=== PATIENT | female | born 1990 | race African-American/Black ===

== ENCOUNTER 2016-06-06 09:08 | Emergency (ER) | payer OTHER ==
[2016-06-06 09:17] VITALS: BP 135/82; BMI 32.7
--- NOTE | 2016-06-06 09:38 | DR.GENAD ---
HPI - PCP Primary Care Physician: nfd - Complaint/Symptoms Chief Complaint Doctors Comments: Patient admits to chest pain with deep inspiration for the past two days. She gives no history of trauma of cardiopulmonary disease. She denies fever or cough. She denies frequency or dysuria. Chief Complaint:: patient stated that for the past two days when she takes a deep breath she hurts in her rib area. Self Treatment fo Chief Complaint: none - Source History Provided: Patient - Mode of Arrival Mode of Arrival: Ambulatory - Timing Onset of Chief Complaint: 06/04/16 PMH - PMH Past Medical History: Yes Past Medical History: Hypertension, Kidney Stones Past Surgical History: No - Family History History of Family Medical Conditions: Yes Family Medical History: Diabetes Mellitus, [place], Hypertension - Social History Does patient currently use any type of tobacco product: Yes Have you used tobacco products in the last 12 months: Yes Type of Tobacco Use: Cigarettes How many years tobacco product used: 14 Does any household member use tobacco: No Alcohol Use: None Do you use any recreational Drugs:: No Lives With: Family Lives Where: Home - infectious screening In the last 2 months have you had wt loss of >10#?: NO Have you had fever, night sweats or hemotysis?: No Have you traveled outside the country in the last 6 months?: No Isolation: Standard ROS - Review of Systems Constitutional: No Symptoms Reported Eyes: No Symptoms Reported ENTM: No Symptoms Reported Respiratoy: No Symptoms Reported. negative: Dry Cough, Short of Breath, Wheezing Cardiovascular: No Symptoms Reported Gastrointestinal/Abdominal: No Symptoms Reported Genitourinary: No Symptoms Reported Neurological: No Symptoms Reported Musculoskeletal: Rib(s) (right anterior lower ribs, admits to pain with inspiration), Other (right inferior pain with inspiration) Integumentary: No Symptoms Reported Hematologic/Lymphatic: No Symptoms Reported Endocrine: No Symptoms Reported Psychiatric: No Symptoms Reported All Other Systems: Reviewed and Negative PE - Vital Signs Vitals: Temperature 98.5 F Pulse Rate 78 Respiratory Rate 16 Blood Pressure [Left Arm] 116/78 Blood Pressure 135/82 O2 Sat by Pulse Oximetry 100 - General Limitations: No Limitations General Appearance: Alert, In No Apparent Distress - Head Head Exam: Normal Inspection, Atraumatic - ENT ENT Exam: Normal Exam External Ear Exam: Normal External Inspection TM/Canal Exam: Bilateral Normal Nose Exam: Normal Nose Exam Mouth Exam: Normal Inspection Throat Exam: Normal Inspection - Neck Neck Exam: Normal Inspection - Chest Chest Inspection: Normal Inspection - Respiratory Respiratory Exam: Normal Lung Sounds Bilat Respiratory Exam: Bilateral Clear to Auscultation - Cardiovascular Cardiovascular Exam: Regular Rate - Abdominal Exam Abdominal Exam: Normal Inspection Abdominal Tenderness: negative: RUQ, RLQ, LUQ, LLQ, Epigastrium, Suprapubic, Diffuse, Mild, Moderate, Severe, Other - Extremities Extremities Exam: Normal Inspection, Full ROM - Back Back Exam: Normal Inspection - Neurologic Neurological Exam: Alert, Oriented X3, CN II-XII Intact - Psychiatric Psychiatric Exam: Normal Affect - Skin Skin Exam: Warm, Dry, Intact Course - Reevaluation 1st: Unchanged ROR - XRAY XRAY Interpreted by: Radiologist (Chest: No acue cardiopulmonary disease) - Diagnosis Discharge Problem: Pleuritic pain - Discharge Plan Condition: Stable - Follow ups/Referrals Follow ups/Referrals: NFD,None [Primary Care Provider] - 3 days - Instructions
--- NOTE | 2016-06-06 10:09 | RAD ---
HISTORY: Chest pain on inspiration Study: Single-view chest Comparison: April 25, 2016 Findings: The trachea is midline. The cardiac silhouette is unremarkable. The lungs are clear without focal infiltrate or effusion. The bony thorax is unremarkable. IMPRESSION: 1. No acute cardiopulmonary disease. Reported By:
== END 2016-06-06 10:17 | disposition home or self-care (01) ==
LOC: ER 09:20
DX: R07.1 Chest pain on breathing (principal)
CPT/HCPCS: 71010; 99281; 99282

== ENCOUNTER 2016-08-24 11:45 | Emergency (ER) | payer SELFPAY ==
[2016-08-24 11:49] VITALS: BP 129/78; BMI 32.8
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
--- NOTE | 2016-08-24 16:48 | RAD ---
HISTORY: Pain Study: Right hand series Comparison: None Findings: No acute cortical disruption or dislocation is identified. The soft tissues appear unremarkable. T he carpal bones appear aligned without evidence for fracture. IMPRESSION: 1. Negative exam. Reported By:
== END 2016-08-24 14:01 | disposition home or self-care (01) ==
LOC: ER 11:56
PROC: 2W38X1Z Immobilization of Right Upper Extremity using Splint (ICD-10-PCS; principal; 2016-08-24)
DX: S60.222A Contusion of left hand, initial encounter (principal); S43.402A Unspecified sprain of left shoulder joint, initial encounter; Y04.0XXA Assault by unarmed brawl or fight, initial encounter; Y92.9 Unspecified place or not applicable
CPT/HCPCS: 73030; 73130; 99282; 99283

== ENCOUNTER 2017-01-04 20:17 | Emergency (ER) | payer SELFPAY ==
[2017-01-04 20:30] VITALS: BMI 32.8
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
--- NOTE | 2017-01-04 22:51 | RAD ---
HISTORY: Left shoulder pain. Study: Three-view left shoulder. Comparison: 08/24/2016. Findings: The appearance of the clavicle and AC joint are unremarkable. The glenohumeral articulation is edis l in its appearance. No acute cortical disruption or dislocation can be identified. The visualized portions of the scapula are unremarkable. In addition, the visualized portions of the left hemithora x appear normal. IMPRESSION: Negative exam of the left shoulder. Reported By:
[2017-01-04] MEDS ORDERED: GENTAMICIN SULF (OPHTH) AFFEYE ONE (23:25)
[2017-01-04] MEDS ORDERED: MOTRIN TAB 600 MG PO ONE ×2 (23:25→23:43)
[2017-01-04] MEDS ORDERED: ULTRAM PO ONE (23:26)
[2017-01-04] MEDS ORDERED: GENTAMICIN SULF (OPHTH) ONE (23:42)
[2017-01-04] MEDS ORDERED: ULTRAM ONE (23:43)
[2017-01-04 23:58] VITALS: BP 136/86
== END 2017-01-04 23:58 | disposition home or self-care (01) ==
LOC: ER 20:17
DX: H00.011 Hordeolum externum right upper eyelid (principal); H10.33 Unspecified acute conjunctivitis, bilateral; S43.402A Unspecified sprain of left shoulder joint, initial encounter; Y33.XXXA Other specified events, undetermined intent, initial encounter; Y92.9 Unspecified place or not applicable
CPT/HCPCS: 73030; 99282

== ENCOUNTER 2017-02-18 08:50 | Emergency (ER) | payer SELFPAY ==
[2017-02-18 09:12] VITALS: BP 138/70; BMI 36.0
--- NOTE | 2017-02-18 10:49 | DR.TOOTHHP ---
HPI - Time Seen Time seen: 10:35 - Primary Care Physician Primary Care Physician: MARVA VALERO - HPI Comment HPI Comment: Upper tooth ache and sore throat since yesterday. She denies fever. - Complaints Chief Complaint:: PT C/O TOOTHACHE AND STREP THROAT. - Reviewed Nurses Notes Reviewed: Yes - Source History Provided: Patient - Mode of Arrival Mode of Arrival: Ambulatory - Timing Onset of Chief Complaint: 02/16/17 - Severity Pain Severity: Mild - Location Location:: Upper, Teeth - Context Onset:: Previous Caries History Of: None - Modifying Factors Worsens:: Nothing Improves:: Analgesics not used - Associated Signs and Symptoms Associated signs and symptoms: Sore Throat PMH - PMH Past Medical History: No Past Medical History: Hypertension, Kidney Stones Past Surgical History: No - Family History History of Family Medical Conditions: No Family Medical History: Diabetes Mellitus, [place], Hypertension - Social History Does patient currently use any type of tobacco product: Yes Have you used tobacco products in the last 12 months: Yes Type of Tobacco Use: Cigarettes How many years tobacco product used: 13 Does any household member use tobacco: No Alcohol Use: None Do you use any recreational Drugs:: No Lives With: Family Lives Where: Home - infectious screening In the last 2 months have you had wt loss of >10#?: NO Have you had fever, night sweats or hemotysis?: No Have you traveled outside the country in the last 6 months?: No Isolation: Standard ROS - Review of Systems Constitutional: No Symptoms Reported Eyes: No Symptoms Reported ENTM: Throat Pain (and tooth ache also) Respiratoy: No Symptoms Reported Cardiovascular: No Symptoms Reported Gastrointestinal/Abdominal: No Symptoms Reported Genitourinary: No Symptoms Reported Neurological: No Symptoms Reported Musculoskeletal: No Symptoms Reported Integumentary: No Symptoms Reported Hematologic/Lymphatic: No Symptoms Reported Endocrine: No Symptoms Reported Psychiatric: No Symptoms Reported All Other Systems: Reviewed and Negative PE - Vital Signs Vitals: Temperature 97.8 F Pulse Rate 92 Respiratory Rate 20 Blood Pressure [Left Arm] 136/86 Blood Pressure 138/70 O2 Sat by Pulse Oximetry 98 - General Limitations: No Limitations General Appearance: Alert, In No Apparent Distress - Head Head Exam: Normal Inspection - Eyes Eye exam: Normal Appearance - ENT ENT Exam: Normal External Ear Exam, Mucous Membranes Moist, TM's Normal Bilaterally External Ear Exam: Normal External Inspection TM/Canal Exam: Bilateral Normal Nose Exam: Normal Nose Exam Mouth Exam: Other (gingivitis of upper anterior gum) Teeth Exam: Fractured Tooth # (right front tooth on maxilla ), Gingival Swelling (anterior maxilla) Throat Exam: Normal Inspection - Neck Neck Exam: Normal Inspection, Full ROM, Trachea Midline - Chest Chest Inspection: Normal Inspection - Respiratory Respiratory Exam: Normal Lung Sounds Bilat - Cardiovascular Cardiovascular Exam: Regular Rate, Normal Rhythm - Abdominal Exam Abdominal Exam: Normal Inspection, Normal Bowel Sounds, Soft - Extremities Extremities Exam: Normal Inspection - Back Back Exam: Normal Inspection - Neurologic Neurological Exam: Alert, Oriented X3, CN II-XII Intact - Psychiatric Psychiatric Exam: Normal Affect, Normal Mood - Skin Skin Exam: Warm, Dry, Intact, Normal Color Course - Education/Counseling Education/Counseling: Patient, Family, Counseling Educated On: Treatment, Diagnosis, Prognosis, Needs for Follow Up - Diagnosis Discharge Problem: Tooth ache, Gingivitis - Discharge Plan Condition: Stable - Follow ups/Referrals Follow ups/Referrals: NFD,None [Primary Care Provider] - 3 days - Instructions
== END 2017-02-18 11:07 | disposition home or self-care (01) ==
LOC: ER 09:17
DX: K08.89 Other specified disorders of teeth and supporting structures (principal); K05.10 Chronic gingivitis, plaque induced
CPT/HCPCS: 99281; 99282

== ENCOUNTER 2017-03-23 16:09 | Emergency (ER) | payer SELFPAY ==
[2017-03-23 16:39] VITALS: BP 131/86; BMI 36.0
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
[2017-03-23] MEDS ORDERED: NS 1000 ML 1,000 ML ONE (16:54)
[2017-03-23] MEDS ORDERED: ZOFRAN INJ 4 MG VIAL ONE (16:55)
[2017-03-23] MEDS ORDERED: ZOFRAN INJ 4 MG VIAL IVP ONE (17:07)
[2017-03-23] MEDS ORDERED: NS 1000 ML 1,000 ML IV ONE (17:07)
[2017-03-23 17:12] LABS: BASOPHILS % (AUTO) 0.5 % (0.2-1.0); EOSINOPHILS % (AUTO) 0.5 % (0.9-2.9); HEMATOCRIT 36.6 % (36.0-47.0); HEMOGLOBIN 12.1 g/dL (12.0-16.0); LYMPHOCYTES # (AUTO) 1.1 X10^3/uL (1.3-2.9); LYMPHOCYTES % (AUTO) 17.2 % (21.0-51.0); MEAN CORPUSCULAR HEMOGLOBIN 29.4 pg (27.0-34.0); MEAN CORPUSCULAR HGB CONC 33.2 g/dL (33.0-35.0); MEAN CORPUSCULAR VOLUME 88.5 fL (80.0-100.0); MEAN PLATELET VOLUME 9.7 fL (7.4-11.0); MONOCYTES # (AUTO) 0.3 x10^3/uL (0.3-0.8); MONOCYTES % (AUTO) 3.9 % (0.0-13.0); NEUTROPHILS # (AUTO) 5.1 x10^3/uL (2.2-4.8); NEUTROPHILS % (AUTO) 77.9 % (42.0-75.0); PLATELET COUNT 201 X10^3/uL (150.0-450.0); RED BLOOD COUNT 4.13 X10^6/uL (3.5-5.4); RED CELL DISTRIBUTION WIDTH 14.5 % (11.6-16.5); WHITE BLOOD COUNT 6.6 X10^3/uL (3.6-10.0)
[2017-03-23 17:50] LABS: ALANINE AMINOTRANSFERASE 97 Units/L (12-78); ALKALINE PHOSPHATASE 114 Units/L (46-116); AMYLASE 58 Units/L (25-115); ASPARTATE AMINO TRANSFERASE 45 Units/L (15-37); BLOOD UREA NITROGEN 7 mg/dL (7-18); CALCIUM 8.6 mg/dL (8.5-10.1); CARBON DIOXIDE 26.6 mmol/L (21-32); CHLORIDE 106 mmol/L (98-107); COR CA(FOR HYPOALB) 9.4 mg/dL (8.5-10.1); COR NA(FOR HYPERGLY) 141 mmol/L (136-145); CREATININE 0.95 mg/dL (0.55-1.02); LIPASE 120 Units/L (73-393); SODIUM 140 mmol/L (136-145); TOTAL PROTEIN 7.3 g/dL (6.4-8.2); eGFR BLACK RACES > 60 (>60); eGFR NON BLACK RACES > 60 (>60)
[2017-03-23] MEDS ORDERED: LOMOTIL PO ONE (17:54)
[2017-03-23] MEDS ORDERED: BENTYL I.M. INJ 10 MG IM ONE ×2 (17:54→18:06)
--- NOTE | 2017-03-23 17:58 | RAD ---
Acute abdominal series Indication: Nausea and vomiting Comparison: None available Findings: The trachea is midline. The cardiac silhouette is unremarkable. The lungs are clear without focal i nfiltrate or effusion. The bony thorax is unremarkable. Flat and upright evaluation of the abdomen demonstrates a mildly thickened loops of small bowel with gaseous distention . The colon has abnormal bowel gas pattern.. No pathological soft tissue mass or calcification can be observed. The bony structures are grossly intact. IMPRESSION: 1. No acute cardiopulmonary disease. 2. Mildly thickened loops of small bowel with gaseous distention likely represents an enteritis as t here is no colonic decompression or significant gaseous dilatation of the small bowel to suggest obst ruction. Consider radiographic follow-up. Reported By:
[2017-03-23] MEDS ORDERED: LOMOTIL ONE (18:06)
== END 2017-03-23 18:37 | disposition home or self-care (01) ==
LOC: ER 16:32
DX: K52.89 Other specified noninfective gastroenteritis and colitis (principal); B96.81 Helicobacter pylori [H. pylori] as the cause of diseases classified elsewhere
CPT/HCPCS: 36415; 74022; 80053; 82150; 83690; 85025; 86677; 90472; 96365; 96372; 96374; 99282; 99283; A4222; J0500; J2405

== ENCOUNTER 2017-05-25 19:42 | Emergency (ER) | payer OTHER ==
[2017-05-25 19:53] VITALS: BP 139/82; BMI 29.7
--- NOTE | 2017-05-25 19:55 | DR.GENAD ---
HPI - PCP Primary Care Physician: LEONARDO - HPI Comment HPI Comment: HISTORY BELOW. - Complaint/Symptoms Chief Complaint Doctors Comments: PATIENT FELL AND INJURED MOUTH, LIPS AND TOOTH. SHE COULD NOT CATCH HERSELF. SHE SAID IT COULD BE BECAUSE OF HER ILLNESS WITH NACOLEPSY. SHE PASS OUT. COMPLAINIG OF HEADACHE. LEFT KNEE SWOLLEN AND PAINFUL. Chief Complaint:: PT STATES" I FELT MY SELF GOING OUT I'M NOT SURE IF IS WAS MY NACOLEPSY I JUST COULDN'T CATCH MYSELF' pt has bustedlip lip with tooth displaced abrasion to outer upper lip and gums have abrasion and swelling - Nurses notes reviewed Nurses Notes Review: Yes - Source History Provided: Patient - Mode of Arrival Mode of Arrival: EMS - Timing Onset of Chief Complaint: 05/25/17 Came on: Suddenly - Duration Duration: Constant Duration: Hours - Severity Severity: Moderate PMH - PMH Past Medical History: Yes Past Medical History: Hypertension, Kidney Stones Past Medical History Comment: narcolepsy Past Surgical History: No - Family History History of Family Medical Conditions: Yes Family Medical History: Diabetes Mellitus, PA, Hypertension - Social History Type of Tobacco Use: Cigarettes Does any household member use tobacco: Yes Alcohol Use: None Do you use any recreational Drugs:: No Lives With: Family Lives Where: Home - infectious screening In the last 2 months have you had wt loss of >10#?: NO Have you had fever, night sweats or hemotysis?: No Have you traveled outside the country in the last 6 months?: No Isolation: Standard ROS - Review of Systems Constitutional: No Symptoms Reported. negative: Chills, Fever, Weakness, Fatigue Eyes: No Symptoms Reported. negative: Eye Pain, Blurred Vision, Discharge, Photophobia, Diplopia ENTM: Mouth Pain, Mouth Swelling. negative: Ear Discharge, Nose Discharge, Nose Congestion, Loose Teeth (TOOTH INJURY.) Respiratoy: No Symptoms Reported. negative: Productive Cough, Non-Productive Cough, Short of Breath, Wheezing, Hemoptysis Cardiovascular: No Symptoms Reported. negative: Chest Pain Gastrointestinal/Abdominal: No Symptoms Reported. negative: Abdominal Pain, Diarrhea, Nausea, Vomiting Genitourinary: No Symptoms Reported Neurological: Headache. negative: Seizure, Weakness, Dizziness Musculoskeletal: Left, Knee, Other (MOUTH ABD LIP PAIN AND SWELLING.) Integumentary: Other (SWOLLEN LIP, ABRASION UPPER LIP, ) Hematologic/Lymphatic: No Symptoms Reported Endocrine: No Symptoms Reported All Other Systems: Reviewed and Negative PE - Vital Signs Vitals: Temperature 98.6 F Pulse Rate 76 Respiratory Rate 20 Blood Pressure [Left Arm] 136/86 Blood Pressure 139/82 O2 Sat by Pulse Oximetry 100 - General Limitations: No Limitations General Appearance: Alert - Head Head Exam: Normal Inspection - Eyes Eye exam: Normal Appearance - ENT ENT Exam: Normal External Ear Exam External Ear Exam: Normal External Inspection TM/Canal Exam: Bilateral Normal Nose Exam: Normal Nose Exam Mouth Exam: Lip Swelling, Other (injury upper incissures.) Throat Exam: Normal Inspection - Neck Neck Exam: Trachea Midline. negative: Tenderness, Meningismus, Lymphadenopathy - Chest Chest Inspection: Symmetric Chest Wall Rise - Respiratory Respiratory Exam: Normal Lung Sounds Bilat Respiratory Exam: Bilateral Clear to Auscultation - Cardiovascular Cardiovascular Exam: Regular Rate, Normal Rhythm, Normal Heart Sounds - Abdominal Exam Abdominal Exam: Normal Bowel Sounds, Soft. negative: Tenderness - Extremities Extremities Exam: Tenderness (LT KNEE TENDER), Joint Swelling (LT KNEE SWOLLEN) . negative: Full ROM (ROYAL LT WITH PAIN.) - Back Back Exam: Normal Inspection - Neurologic Neurological Exam: Alert, Oriented X3, CN II-XII Intact. negative: Motor Sensory Deficit - Psychiatric Psychiatric Exam: Anxious - Skin Skin Exam: Erythema, Other (abrasion upper lip.) MDM - Differential Diagnosis Differential Diagnosis: CONTUSION, SPRAIN, STRAIN, FRATURE LT KNEE AND FACE AND SKULL. BRAIN BLEED. Course - Treatment Treatment: SEE ORDERS. - Education/Counseling Education/Counseling: Patient, Education Educated On: Diagnosis, Needs for Follow Up ROR - Labs Reviewed Laboratory Results Reviewed?: Yes Result Diagrams: 05/25/17 20:05 05/25/17 20:05 Laboratory: WBC 4.8 X10^3/uL (3.6-10.0) 05/25/17 20:05 RBC 4.20 X10^6/uL (3.5-5.4) 05/25/17 20:05 Hgb 12.5 g/dL (12.0-16.0) 05/25/17 20:05 Hct 37.3 % (36.0-47.0) 05/25/17 20:05 MCV 88.9 fL (80.0-100.0) 05/25/17 20:05 MCH 29.9 pg (27.0-34.0) 05/25/17 20:05 MCHC 33.6 g/dL (33.0-35.0) 05/25/17 20:05 RDW 14.9 % (11.6-16.5) 05/25/17 20:05 Plt Count 211 X10^3/uL (150.0-450.0) 05/25/17 20:05 MPV 9.5 fL (7.4-11.0) 05/25/17 20:05 Neut % (Auto) 67.2 % (42.0-75.0) 05/25/17 20:05 Lymph % (Auto) 25.6 % (21.0-51.0) 05/25/17 20:05 [place] % (Auto) 5.1 % (0.0-13.0) 05/25/17 20:05 Eos % (Auto) 0.9 % (0.9-2.9) 05/25/17 20:05 Baso % (Auto) 1.2 % (0.2-1.0) H 05/25/17 20:05 Neut # (Auto) 3.3 x10^3/uL (2.2-4.8) 05/25/17 20:05 Lymph # (Auto) 1.2 X10^3/uL (1.3-2.9) L 05/25/17 20:05 [place] # (Auto) 0.2 x10^3/uL (0.3-0.8) L 05/25/17 20:05 Eos # (Auto) 0.0 x10^3/uL (0.0-0.2) 05/25/17 20:05 Baso # (Auto) 0.1 X10^3/uL (0.0-0.1) 05/25/17 20:05 Absolute Nucleated RBC 0.0 /100WBC 05/25/17 20:05 Sodium 139 mmol/L (136-145) 05/25/17 20:05 Corrected Sodium 139 mmol/L (136-145) 05/25/17 20:05 Potassium 4.3 mmol/L (3.5-5.1) 05/25/17 20:05 Chloride 104 mmol/L (98-107) 05/25/17 20:05 Carbon Dioxide 26.7 mmol/L (21-32) 05/25/17 20:05 BUN 11 mg/dL (7-18) 05/25/17 20:05 Creatinine 0.92 mg/dL (0.55-1.02) 05/25/17 20:05 Est GFR (MDRD) Af Amer > 60 (>60) 05/25/17 20:05 Est GFR (MDRD) Non-Af > 60 (>60) 05/25/17 20:05 Glucose 111 mg/dL (65-99) H 05/25/17 20:05 Calcium 9.1 mg/dL (8.5-10.1) 05/25/17 20:05 Corrected Calcium TNP 05/25/17 20:05 Total Bilirubin 0.10 mg/dL (0.2-1.0) L 05/25/17 20:05 AST 20 Units/L (15-37) 05/25/17 20:05 ALT 30 Units/L (12-78) 05/25/17 20:05 Alkaline Phosphatase 118 Units/L (46-116) H 05/25/17 20:05 Total Protein 8.2 g/dL (6.4-8.2) 05/25/17 20:05 Albumin 3.6 g/dL (3.4-5.0) 05/25/17 20:05 Globulin 4.6 g/dL (2.5-4.5) H 05/25/17 20:05 Albumin/Globulin Ratio 0.8 Ratio (1.1-2.1) L 05/25/17 20:05 Non-DOT Drug Screen Cancelled 05/25/17 21:00 - XRAY XRAY Interpreted by: Radiologist XRAY Findings: REPORT DISCUSS WITH PATIENT. - Diagnosis Discharge Problem: Tooth injury Qualifiers: Encounter type: initial encounter Qualified Code(s): S09.93XA - Unspecified injury of face, initial encounter Lip abrasion Qualifiers: Encounter type: initial encounter Qualified Code(s): S00.511A - Abrasion of lip , initial encounter Facial abrasion Qualifiers: Encounter type: initial encounter Qualified Code(s): S00.81XA - Abrasion of other part of head, initial encounter Facial contusion Qualifiers: Encounter type: initial encounter Qualified Code(s): S00.83XA - Contusion of other part of head, initial encounter Episode of syncope Qualifiers: Syncope type: unspecified Qualified Code(s): R55 - Syncope and collapse Sprain of left knee Qualifiers: Encounter type: initial encounter Involved ligament of knee: unspecified ligament Qualified Code(s): S83.92XA - Sprain of unspecified site of left knee, initial encounter - Discharge Plan Disposition: HOME, SELF-CARE Condition: Stable Prescriptions: Amoxicillin [Amoxil 875 mg] 875 mg PO Q12H #20 tab Ibuprofen [MOTRIN TAB 800 MG *] 800 mg PO Q8H PRN #30 tab PRN Reason: Pain/Inflammation - Follow ups/Referrals Follow ups/Referrals: GERMÁN ANDERSON [Primary Care Provider] - 3 days - Instructions Instructions: Tooth Injuries, [id number], Musculoskeletal Pain, Syncope, Easy -to-Read Additional Instructions: RETURN TO ED IF WORSE. FOLLOW UP WITH THE DENTIST THIS WEEK.
[2017-05-25 20:13] LABS: BASOPHILS # (AUTO) 0.1 X10^3/uL (0.0-0.1); BASOPHILS % (AUTO) 1.2 % (0.2-1.0); EOSINOPHILS % (AUTO) 0.9 % (0.9-2.9); HEMATOCRIT 37.3 % (36.0-47.0); HEMOGLOBIN 12.5 g/dL (12.0-16.0); LYMPHOCYTES # (AUTO) 1.2 X10^3/uL (1.3-2.9); LYMPHOCYTES % (AUTO) 25.6 % (21.0-51.0); MEAN CORPUSCULAR HEMOGLOBIN 29.9 pg (27.0-34.0); MEAN CORPUSCULAR HGB CONC 33.6 g/dL (33.0-35.0); MEAN CORPUSCULAR VOLUME 88.9 fL (80.0-100.0); MEAN PLATELET VOLUME 9.5 fL (7.4-11.0); MONOCYTES # (AUTO) 0.2 x10^3/uL (0.3-0.8); MONOCYTES % (AUTO) 5.1 % (0.0-13.0); NEUTROPHILS # (AUTO) 3.3 x10^3/uL (2.2-4.8); NEUTROPHILS % (AUTO) 67.2 % (42.0-75.0); PLATELET COUNT 211 X10^3/uL (150.0-450.0); RED CELL DISTRIBUTION WIDTH 14.9 % (11.6-16.5); WHITE BLOOD COUNT 4.8 X10^3/uL (3.6-10.0)
[2017-05-25 20:25] LABS: ALANINE AMINOTRANSFERASE 30 Units/L (12-78); ALBUMIN 3.6 g/dL (3.4-5.0); ALKALINE PHOSPHATASE 118 Units/L (46-116); ASPARTATE AMINO TRANSFERASE 20 Units/L (15-37); BLOOD UREA NITROGEN 11 mg/dL (7-18); CALCIUM 9.1 mg/dL (8.5-10.1); CARBON DIOXIDE 26.7 mmol/L (21-32); CHLORIDE 104 mmol/L (98-107); COR NA(FOR HYPERGLY) 139 mmol/L (136-145); CREATININE 0.92 mg/dL (0.55-1.02); SODIUM 139 mmol/L (136-145); TOTAL PROTEIN 8.2 g/dL (6.4-8.2); eGFR BLACK RACES > 60 (>60); eGFR NON BLACK RACES > 60 (>60)
--- NOTE | 2017-05-25 20:37 | CT ---
HISTORY: Status post fall with head and facial injury Study: CT head without contrast Comparison: January 11, 2014 Technique: Multiple axial, coronal, and sagittal CT images of the head were reviewed without contrast . AEC was utilized. Findings: There is no mass, hemorrhage, midline shift, or abnormal extra-axial fluid collection. The ventricles are symmetrical in size and configuration. There are no findings to suggest an acute or subacute isc hemic event. 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 IMPRESSION: No acute intracranial process. Reported By:
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
[2017-05-25] MEDS ORDERED: TORADOL 60 MG VIAL IM ONE (21:45)
[2017-05-25] MEDS ORDERED: TORADOL 60 MG VIAL ONE (21:49)
[2017-05-25] MEDS ORDERED: AMOXIL CAP 500 MG PO ONE ×2 (22:17→22:27)
== END 2017-05-25 22:35 | disposition home or self-care (01) ==
LOC: ER 19:57
DX: S09.93XA Unspecified injury of face, initial encounter (principal); S00.511A Abrasion of lip, initial encounter; S00.81XA Abrasion of other part of head, initial encounter; S00.83XA Contusion of other part of head, initial encounter; R55 Syncope and collapse; S83.92XA Sprain of unspecified site of left knee, initial encounter; W19.XXXA Unspecified fall, initial encounter; Y92.9 Unspecified place or not applicable
CPT/HCPCS: 36415; 70450; 70486; 73560; 80053; 85025; 96372; 99282; 99283; J1885